=== PATIENT | female | born 1990 | race Caucasian/White ===

== ENCOUNTER 2018-01-24 21:31 | Emergency (ER) | payer OTHER ==
[~2018-01-24] VITALS: Ht 154.9 cm; Wt 102.1 kg
[~2018-01-24 21:31] MED LIST: ACETAMINOPHEN-1 EAC1 PO; ALBUTEROL; ALBUTEROL INHAL17 GM IH; AMOXICILLIN 50500 MG PO; ANAPROX DS550 MG PO; BACTRIM DS TAB1 EACH PO; BENADRYL25 MG; BENADRYL25 MG PO; CEPHALEXIN 500500 M3 PO; CIPROFLOXACIN500 M1 PO; DEPO-ESTRAD5 MG/1 ML; FLAGYL500 MG PO; FLEXERIL PO; HYDROCODONE-AP1 EAC6 PO; IBUPROFEN 600600 M1 PO; NECON1 EAC4; NORCO 5-325 TA1 EACH PO; ONDANSETRON HCL4 M2 PO; PREDNISONE 20 M20 M1 PO; PREDNISONE 20 M20 MG PO; PROAIR HFA8.5 GM INH; PROCTOSOL-HC28.35 GM RC; TOBREX5 ML OP; TRAMADOL 50 MG50 MG PO; TRINATE TABLET1 TAB PO; VENTOLIN HFA 1818 GM INH; VICODIN ES 7.51 EACH; ZOFRAN ODT4 MG PO; ZPAK PO
[2018-01-24] MEDS ORDERED: ALBUTEROL2.5 MG/31 (21:41)
[2018-01-24] MEDS ORDERED: PREDNISONE 10 M10 M1 PO (22:51)
[2018-01-24] MEDS ORDERED: IPRAT-ALBUT 0.5-3 ML INH (22:53)
[2018-01-24 23:10] VITALS: BP 118/69
== END 2018-01-24 23:12 | disposition home or self-care (01) ==
LOC: M.ERS 21:31
DX: J45.901 Unspecified asthma with (acute) exacerbation (principal); I10 Essential (primary) hypertension; F41.9 Anxiety disorder, unspecified; F32.9 Major depressive disorder, single episode, unspecified

== ENCOUNTER 2018-09-23 16:41 | Emergency (ER) | payer OTHER ==
[~2018-09-23] VITALS: Ht 154.9 cm; Wt 81.7 kg
[~2018-09-23 16:41] MED LIST changes: +ALBUTEROL2.5 MG/31; +IPRAT-ALBUT 0.5-3 ML INH; +PREDNISONE 10 M10 M1 PO
[2018-09-23 17:18] LABS: URINE BILIRUBIN NEGATIVE (Negative); URINE BLOOD NEGATIVE (Negative); URINE CLARITY CLEAR; URINE COLOR YELLOW; URINE GLUCOSE-RANDOM NEGATIVE (Negative); URINE KETONES NEGATIVE (Negative); URINE LEUKOCYTES-REFLEX NEGATIVE (Negative); URINE NITRITE-REFLEX NEGATIVE (Negative); URINE PROTEIN NEGATIVE (Negative); URINE SPECIFIC GRAVITY >= 1.030 (1.005-1.030); URINE UROBILINOGEN 0.2 E.U./dl (0.2-1.0)
[2018-09-23 17:19] LABS: ABSOLUTE BASOPHILS 0.1 thou/uL (0.0-0.2); ABSOLUTE EOSINOPHILS 0.2 thou/uL (0.0-0.7); ABSOLUTE LYMPHOCYTES 2.4 thou/uL (0.8-5.3); ABSOLUTE MONOCYTES 0.5 thou/uL (0.0-1.2); ABSOLUTE NEUTROPHILS 3.6 thou/uL (1.6-8.1); BASOPHILS 1.2 %; EOSINOPHILS 3.2 %; HEMATOCRIT 40.2 % (37.0-47.0); HEMOGLOBIN 13.5 gm/dL (12.0-15.0); LYMPHOCYTES 34.8 %; MCH 29.8 pg (26.0-34.0); MCHC 33.6 g/dL (28.0-37.0); MCV 88.7 fL (80.0-100.0); NUCLEATED RBCS 0 /100WBC; PLATELET COUNT* 242 thou/uL (150-400); POLYS 52.8 %; RBC 4.54 mil/uL (4.20-5.00); RDW-CV 14.3 % (10.5-14.5); WBC 6.8 thou/uL (4.0-11.0)
[2018-09-23 17:24] LABS: AMP/METHAMP Negative (Negative); BARBITURATES Negative (Negative); BENZODIAZEPINES Negative (Negative); COCAINE Negative (Negative); METHADONE Negative (Negative); OPIATES Negative (Negative); PCP Negative (Negative); THC POSITIVE (Negative)
[2018-09-23 17:34] LABS: ANION GAP 8 mmol/L (7-16); BUN 10 mg/dL (7-18); CALCIUM 8.7 mg/dL (8.5-10.1); CHLORIDE 107 mmol/L (98-107); CO2 25 mmol/L (21-32); CREATININE 0.7 mg/dL (0.6-1.3); GLUCOSE 92 mg/dL (70-99); POTASSIUM 3.5 mmol/L (3.5-5.1); SODIUM 140 mmol/L (136-145); TROPONIN-I LEVEL <0.06 ng/mL (<0.06)
[2018-09-23 17:35] LABS: SALICYLATE 4.1 mg/dL (2.8-20.0)
[2018-09-23 17:37] LABS: ACETAMINOPHEN < 2 ug/mL (10-30); ALCOHOL < 10 mg/dL (<10)
[2018-09-23 17:38] LABS: ALBUMIN 3.4 g/dL (3.4-5.0); ALKALINE PHOSPHATASE 58 U/L (46-116); SGOT 8 U/L (15-37); SGPT 12 U/L (30-65); TOTAL BILIRUBIN 0.2 mg/dL (<0.1-1.0); TOTAL PROTEIN 6.9 g/dL (6.4-8.2)
[2018-09-23 21:02] VITALS: BP 119/57
--- NOTE | 2018-09-25 15:00 | EKG ---
[place] [address] ELECTROCARDIOGRAM REPORT Name: FELIZ FIELD Room: [facility]#: [id number] Admission: 09/23/18 Attend Phys: Discharge: 09/23/18 Date of : [birth year] Report #: [id number] THIS REPORT FOR: //name// [facility] ED Test Date: 2018-09-23 Test Time: 17:10:46 Pat Name: FELIZ FIELD Department: Room: Gender: F Material Liaison: Ilana WALSH : 1990 Requested By: Ramy Major Order Number: [id number] MD: Petar Kearney Measurements Intervals Ephraim Rate: 69 P: 12 MA: 122 QRS: 24 QRSD: 91 T: 30 QT: 379 QTc: 406 Interpretive Statements Sinus rhythm No previous ECG available for comparison Electronically Signed On 09-25-2018 15:00:46 CDT by Petar Kearney [email or web address] <ELECTRONICALLY SIGNED> By: Petar Kearney MD, [facility] 09/25/18 1500 1710 1710 Petar Kearney MD, FACC /EPI
== END 2018-09-23 21:03 | disposition home or self-care (01) ==
LOC: M.ERS 16:41
PROVIDERS: Emergency Medicine Emergency Medical Services
DX: F32.9 Major depressive disorder, single episode, unspecified (principal); F41.9 Anxiety disorder, unspecified; R45.851 Suicidal ideations; I10 Essential (primary) hypertension; J45.909 Unspecified asthma, uncomplicated; E28.2 Polycystic ovarian syndrome

== ENCOUNTER 2019-01-22 23:11 | Emergency (ER) | payer OTHER ==
[~2019-01-22] VITALS: Ht 154.9 cm; Wt 77.1 kg
[2019-01-23 00:03] LABS: ABSOLUTE BASOPHILS 0.1 thou/uL (0.0-0.2); ABSOLUTE EOSINOPHILS 0.2 thou/uL (0.0-0.7); ABSOLUTE MONOCYTES 0.7 thou/uL (0.0-1.2); ABSOLUTE NEUTROPHILS 6.8 thou/uL (1.6-8.1); EOSINOPHILS 2.2 %; HEMATOCRIT 39.8 % (37.0-47.0); HEMOGLOBIN 13.3 gm/dL (12.0-15.0); MCH 30.1 pg (26.0-34.0); MCHC 33.5 g/dL (28.0-37.0); MCV 89.7 fL (80.0-100.0); MONOCYTES 6.6 %; MPV 8.7 fl. (7.2-11.1); NUCLEATED RBCS 0 /100WBC; PLATELET COUNT* 248 thou/uL (150-400); POLYS 62.2 %; RBC 4.44 mil/uL (4.20-5.00); RDW-CV 13.7 % (10.5-14.5); WBC 10.9 thou/uL (4.0-11.0)
[2019-01-23 00:09] LABS: CALCIUM 9.1 mg/dL (8.5-10.1); CREATININE 0.8 mg/dL (0.6-1.3); POTASSIUM 4.9 mmol/L (3.5-5.1)
[2019-01-23 00:11] LABS: ALBUMIN 3.6 g/dL (3.4-5.0); TOTAL BILIRUBIN 0.3 mg/dL (<0.1-1.0); TOTAL PROTEIN 7.1 g/dL (6.4-8.2)
[2019-01-23] MEDS ORDERED: NORCO 5-325 TA1 EAC1 PO (02:18)
[2019-01-23 02:47] VITALS: BP 132/72
== END 2019-01-23 03:25 | disposition home or self-care (01) ==
LOC: M.ERS 23:11
PROVIDERS: Family Medicine
DX: K62.89 Other specified diseases of anus and rectum (principal); J45.909 Unspecified asthma, uncomplicated; I10 Essential (primary) hypertension; F41.9 Anxiety disorder, unspecified; F32.9 Major depressive disorder, single episode, unspecified

== ENCOUNTER 2021-07-03 20:50 | Emergency (ER) | payer OTHER ==
[~2021-07-03] VITALS: Ht 154.9 cm; Wt 72.6 kg
[~2021-07-03 20:50] MED LIST changes: +NORCO 5-325 TA1 EAC1 PO
[2021-07-03] MEDS ORDERED: APAP W/CODEINE1 TA2 PO (21:45)
[2021-07-03] MEDS ORDERED: LIDOCAINE VISC100 ML SWISH&SPIT (21:45)
[2021-07-03] MEDS ORDERED: CLINDAMYCIN HC300 MG PO (21:45)
[2021-07-03 21:58] VITALS: BP 142/79
== END 2021-07-03 21:58 | disposition home or self-care (01) ==
LOC: M.ERS 20:50
DX: K08.89 Other specified disorders of teeth and supporting structures (principal); J45.909 Unspecified asthma, uncomplicated; I10 Essential (primary) hypertension; F41.9 Anxiety disorder, unspecified; F32.9 Major depressive disorder, single episode, unspecified